=== PATIENT | female | born 2000 | race Caucasian/White ===

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

== ENCOUNTER 2019-05-01 18:58 | Inpatient (IN) | payer BC, OTHER ==
[2019-05-01] MEDS ORDERED: SODIUM CHLORIDE 0.9% 1,000 ML IV STA (19:28)
[2019-05-01] MEDS ORDERED: ALPRAZolam 0.25 MG TAB PO STA (19:28)
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
[2019-05-01] MEDS ORDERED: MAG HYDROX/AL HYDROX/SIMETH 30 ML CUP PO PRN (22:25)
[2019-05-01] MEDS ORDERED: LORazepam 1 MG TAB PO PRN (22:25)
[2019-05-01] MEDS ORDERED: MAGNESIUM HYDROXIDE 2,400 MG/10 ML CUP PO PRN (22:25)
[2019-05-01] MEDS ORDERED: ACETAMINOPHEN TAB 325 MG TAB PO PRN (22:25)
[2019-05-01 22:31] LABS: Amphetamine Screen,Urine Not Detected (NotDetected); Barbiturate Screen,Urine Not Detected (NotDetected); Benzodiazepines Screen,Urine Detected (NotDetected); Cocaine Screen,Urine Not Detected (NotDetected); Methadone Screen, Urine Not Detected (NotDetected); Opiate Screen,Urine Not Detected (NotDetected); Oxycodone Screen, Urine Not Detected (NotDetected); Phencyclidine Screen,Urine Not Detected (NotDetected); Tricyclic Antidepressant,Urine Not Detected (NotDetected); Urn Cannabinoid Scrn Not Detected (NotDetected)
[2019-05-01 22:44] LABS: Appearance,Urine Clear (Clear); Bilirubin,Urine Negative (Negative); Blood,Urine Negative (Negative); Color,Urine Yellow; Glucose,Urine (UA) Negative (Negative); Ketones,Urine 4+ (Negative); Leukocyte Esterase,Urine Trace (Negative); Mucus,Urine Many /hpf; Nitrite,Urine Negative (Negative); PH, Urine 5.5 (5.0-8.0); Protein,Urine Trace (Negative); RBC,Urine 2 /hpf (0-5); Specific Gravity,Urine 1.029 (1.001-1.035); Squamous Epithelial Cell,Urine 3 /hpf (0-4); Urobilinogen,Urine <2.0 mg/dL (<2.0); WBC,Urine 3 /hpf (0-5)
[2019-05-02 07:19] VITALS: RESP 16
[2019-05-02 07:45] LABS: Basophils % (A) 0 %; Eosinophils # (A) 0.1 k/uL (0-0.7); Eosinophils % (A) 2 %; HCT 40.4 % (34.0-46.0); HGB 13.9 gm/dL (11.4-16.0); Lymphocytes # (A) 2.1 k/uL (1.0-4.8); Lymphocytes % (A) 28 %; MCH 31.4 pg (25.0-35.0); MCHC 34.4 g/dL (31.0-37.0); MCV 91.5 fL (80.0-100.0); Mean Platelet Volume 6.2; Monocytes # (A) 0.5 k/uL (0-1.0); Monocytes % (A) 6 %; Neutrophils # (A) 4.6 k/uL (1.3-7.7); Neutrophils % (A) 61 %; Platelet Count 275 k/uL (150-450); RBC 4.42 m/uL (3.80-5.40); RDW 11.5 % (11.5-15.5); WBC 7.5 k/uL (4.0-11.0)
[2019-05-02 08:05] LABS: ALT 51 U/L (9-52); AST 31 U/L (14-36); African American GFR (CKD) >90 (>60 ml/min/1.73 sqM); Albumin 3.7 g/dL (3.5-5.0); Alkaline Phosphatase 42 U/L (38-126); Anion Gap 7 mmol/L; Blood Urea Nitrogen 14 mg/dL (7-17); Calcium 9.3 mg/dL (8.4-10.2); Carbon Dioxide 27 mmol/L (22-30); Chloride 106 mmol/L (98-107); Cholesterol 172 mg/dL (<200); Glucose 82 mg/dL (74-99); HDL Cholesterol 47 mg/dL (40-60); LDL Cholesterol,Calculated 110 mg/dL (0-99); Non-African American GFR(CKD) >90 (>60 ml/min/1.73 sqM); Potassium 4.1 mmol/L (3.5-5.1); Sodium 140 mmol/L (137-145); Total Protein 6.3 g/dL (6.3-8.2); Triglycerides 76 mg/dL (<150)
[2019-05-02] MEDS ORDERED: INFLUENZA VACCINE (6 MOS+) 60 MCG/0.5 ML SYRINGE IM ONE (09:00)
[2019-05-02 11:02] VITALS: BMI 33.7
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
[2019-05-02] MEDS ORDERED: IBUPROFEN 800 MG TAB PO PRN (15:57)
[2019-05-02] MEDS ORDERED: GALCANEZUMAB GNLM 120 MG SQ SCH (16:00)
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
[2019-05-02 20:15] LABS: Hemoglobin A1C 4.5 % (4.0-6.0)
[2019-05-02] MEDS ORDERED: SERTRALINE 25 MG TAB PO SCH (21:00)
[2019-05-03] MEDS: GALCANEZUMAB GNLM 120 MG SQ SCH ×2 (10:52→11:07)
[2019-05-03] MEDS: NORETHINDRONE E ESTRADIOL IRON PO SCH ×2 (11:08→21:22)
--- NOTE | 2019-05-03 12:36 | P.PN ---
Progress Note - Text Interval history: The patient is found in the hallway she follows me to an interview room. She indicates her mood is improving. She had a supportive visit from her mother last evening. She anticipates her mother will visit again this evening. She has no questions or concerns regarding the Zoloft we discussed titrating the dose further and she is agreeable. She indicates she was able to sleep last night appetite stable. She has been attending groups. She states that she did overwhelm herself with course work as she signed up for 19 credits. We discussed in the future setting realistic limits. Mental status exam: The patient is a female appearing her stated age. She presents with good hygiene grooming. She indicates her mood is better affect is bright and smiling. She is reporting no hopelessness thinking no suicidal ideation intent or plan. She indicates she is responding to support from the family and the therapeutic milieu. She is reporting no homicidal ideation intent or plan she reports no auditory or visual hallucinations or any specific delusions. There is no observed evidence of psychosis. She reports no tangential thinking loose associations flight of ideas. She does not appear hypomanic or manic. Insight and judgment improving. Plan: The patient will continue on the Zoloft we will titrate to 50 mg at bedtime. Zoloft may need to be titrated further. We will monitor for safety and encourage participation in the milieu. Vital signs reviewed. Social work will be asked to arrange a support meeting.
[2019-05-03] MEDS: SERTRALINE 50 MG TAB PO SCH (21:22)
[2019-05-04] MEDS ORDERED: hydrOXYzine PAMOATE 25 MG CAP PO PRN (14:19)
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
[2019-05-04] MEDS: SERTRALINE 50 MG TAB PO SCH (21:43)
[2019-05-04] MEDS: NORETHINDRONE E ESTRADIOL IRON PO SCH (21:43)
[2019-05-05 00:39] VITALS: BP 139/80; PULSE 69; TEMP 97.9
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
== END 2019-05-05 14:50 | disposition home or self-care (01) | DRG 885 ==
LOC: EC 18:58 → 3MHU 22:20
PROVIDERS: ADMIT Psychiatry & Neurology Psychiatry; ATTEND Psychiatry & Neurology Psychiatry
DX: F32.2 Major depressive disorder, single episode, severe without psychotic features (principal); E86.0 Dehydration; F41.0 Panic disorder [episodic paroxysmal anxiety]; F41.1 Generalized anxiety disorder; G43.909 Migraine, unspecified, not intractable, without status migrainosus; F43.10 Post-traumatic stress disorder, unspecified; Z79.899 Other long term (current) drug therapy; Z88.1 Allergy status to other antibiotic agents; Z91.040 Latex allergy status
CPT/HCPCS: 80053; 80061; 80306; 81001; 81025; 83036; 84443; 85025; 90686; 96360; 96361; 99284

== ENCOUNTER 2019-06-13 00:35 | Emergency (ER) | payer BC, OTHER ==
[2019-06-13 00:51] VITALS: BP 134/85; PULSE 78; RESP 20; TEMP 97.9
[2019-06-13] MEDS ORDERED: KETOROLAC 30 MG/ML 1 ML VIAL IM STA (01:02)
[2019-06-13] MEDS ORDERED: DEXAMETHASONE SOD PHOSPHATE 10 MG/ML 1 ML VIAL IM STA (01:02)
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
[2019-06-13] MEDS ORDERED: LIDOCAINE VISCOUS 2% 15 ML CUP MUCOUS MEM STA (02:01)
== END 2019-06-13 02:13 | disposition home or self-care (01) ==
LOC: EC 00:35
DX: J02.9 Acute pharyngitis, unspecified (principal); Z88.1 Allergy status to other antibiotic agents; Z91.040 Latex allergy status; Z88.5 Allergy status to narcotic agent; Z88.6 Allergy status to analgesic agent
CPT/HCPCS: 87081; 87430; 87502; 99283; 96372 ×2; J1100; J1885